=== PATIENT | male | born 2005 | race Asian ===

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

== ENCOUNTER 2023-12-22 17:27 | Emergency (ER) | payer OTHER ==
[~2023-12-22 17:27] MED LIST: VENL37.598 PO
[2023-12-22] MEDS ORDERED: IBUP-1022 PO (18:50)
[2023-12-22] MEDS: IBUPROFEN 600MG TAB PO ONE (19:04)
[2023-12-22 19:09] VITALS: BP 136/86; TEMP 97.2; O2SAT 100
== END 2023-12-22 19:19 | disposition home or self-care (01) ==
LOC: M ED 17:27
DX: S90.31XA Contusion of right foot, initial encounter (principal); W20.8XXA Other cause of strike by thrown, projected or falling object, initial encounter; Y92.9 Unspecified place or not applicable; Y93.89 Activity, other specified; Y99.1 Military activity; Z91.030 Bee allergy status; Z79.1 Long term (current) use of non-steroidal anti-inflammatories (NSAID)

== ENCOUNTER → 2024-05-22 | Outpatient (REF) | payer OTHER ==
[~2024-05-22] MED LIST changes: +IBUP-1022 PO
== END ==
LOC: M WUC 20:26
DX: R19.7 Diarrhea, unspecified (principal)

== ENCOUNTER 2024-08-19 15:01 | Emergency (ER) | payer OTHER ==
[~2024-08-19] VITALS: Ht 172.7 cm; Wt 113.6 kg
[2024-08-19 17:03] LABS: Trichomonas vaginalis (AMP) NOT DETECTED (NEGATIVE)
[2024-08-19 17:27] LABS: GC DNA AMPLIFICATION NEGATIVE (NEGATIVE)
[2024-08-19 17:50] LABS: HEPATITIS B SURFACE ANTIBODY POSITIVE (POSITIVE)
[2024-08-19 18:02] LABS: HEPATITIS B SURFACE ANTIGEN NEGATIVE (NEGATIVE)
[2024-08-19 18:14] LABS: HIV 1&2 SCREEN NEGATIVE (NEGATIVE)
[2024-08-19 18:22] LABS: HEPATITIS C VIRUS ABY INDEX < 0.02 INDEX (<0.8)
[2024-08-19 19:46] VITALS: BP 151/65; TEMP 96.5; O2SAT 100
== END 2024-08-19 19:52 | disposition home or self-care (01) ==
LOC: M ED 15:01
DX: Z11.3 Encounter for screening for infections with a predominantly sexual mode of transmission (principal); Z91.030 Bee allergy status; Z79.1 Long term (current) use of non-steroidal anti-inflammatories (NSAID)

== ENCOUNTER 2025-01-30 12:51 | Inpatient (IN) | payer OTHER ==
[~2025-01-30] VITALS: Ht 170.2 cm; Wt 120.0 kg
[~2025-01-30 12:51] MED LIST changes: -IBUP-1022 PO; +IBUP600T42 PO
[2025-01-30 14:15] LABS: PLATELET COUNT, AUTOMATED 270 10^3/uL (150-450)
[2025-01-30 14:41] LABS: ETHYL ALCOHOL (ETHANOL) 0.003 % (0.000-0.010)
[2025-01-30 14:43] LABS: ALT/SGPT 78 U/L (7.0-40); AST/SGOT 46 U/L (<34); CALCIUM LEVEL 9.4 MG/DL (8.5-10.1); CARBON DIOXIDE LEVEL 24 MMOL/L (20-31); CHLORIDE LEVEL 103 MMOL/L (98-107); CREATININE FOR GFR 0.81 MG/DL (0.70-1.30); GLOMERULAR FILTRATION RATE > 90.0 (>60); POTASSIUM SERUM 4.3 MMOL/L (3.5-5.1); SALICYLATE LEVEL < 3.0 MG/DL (<30); SODIUM LEVEL 140 MMOL/L (136-145)
[2025-01-30 14:51] LABS: AMPHETAMINES LEVEL URINE NEGATIVE (NEGATIVE); BARBITURATES URINE NEGATIVE (NEGATIVE); BENZODIAZEPINES URINE NEGATIVE (NEGATIVE); CANNABINOIDS URINE NEGATIVE (NEGATIVE); COCAINE METABOLITE URINE NEGATIVE (NEGATIVE); METHADONE URINE NEGATIVE (NEGATIVE); OPIATES URINE NEGATIVE (NEGATIVE); PHENCYCLIDINE URINE NEGATIVE (NEGATIVE)
[2025-01-30] MEDS: IBUPROFEN 600 MG TAB PO ONE (15:05)
[2025-01-30] MEDS ORDERED: IBUP-1729 PO (16:51)
[2025-01-30] MEDS ORDERED: HOME MED LIST COMPLETE! XX SCH (16:55)
[2025-01-30] MEDS ORDERED: MOM 30 ML SUSPENSION UDC PO PRN (19:25)
[2025-01-30] MEDS ORDERED: MAALOX 30 ML SUSP *UDC PO PRN (19:25)
[2025-01-30] MEDS ORDERED: traZODone 50 MG TAB PO PRN (19:25)
[2025-01-30 21:30] VITALS: BP 146/88; TEMP 97.6; O2SAT 100
[2025-01-31 06:31] VITALS: BP 133/62; TEMP 97.2; O2SAT 99
[2025-01-31] MEDS: IBUPROFEN 400 MG TAB PO PRN (13:09)
[2025-01-31 15:57] VITALS: BP 139/83; TEMP 97.7; O2SAT 99
[2025-01-31] MEDS: FLUZONE VACCINE TRI PF(25-26) 0.5ML SYRINGE IM.IMMUN ONE (17:05)
[2025-02-01 06:14] VITALS: BP 150/80; TEMP 97.8; O2SAT 100
[2025-02-01] MEDS ORDERED: OLANZapine ORAL DISINTEGRATING TAB 5MG PO PRN (10:40)
[2025-02-01 14:24] VITALS: BP 127/84; TEMP 97.3; O2SAT 99
[2025-02-01] MEDS: ACETAMINOPHEN 325 MG TAB PO PRN (20:50)
[2025-02-02 06:19] VITALS: BP 133/91; TEMP 97.3; O2SAT 98
[2025-02-02 14:51] VITALS: BP 137/86; TEMP 97; O2SAT 98
[2025-02-03 06:39] VITALS: BP 158/79; TEMP 97.1; O2SAT 97
[2025-02-03 14:24] VITALS: BP 138/86; TEMP 97.8; O2SAT 99
[2025-02-03] MEDS: OLANZapine 5 MG TAB PO SCH (20:39)
[2025-02-04 06:34] VITALS: BP 132/59; TEMP 97.6; O2SAT 100
[2025-02-04] MEDS: FLUoxetine 20 MG CAP PO SCH (08:44)
[2025-02-04] MEDS ORDERED: OLAN1TAB16 PO (12:12)
[2025-02-04] MEDS ORDERED: FLUO-365 PO (12:12)
== END 2025-02-04 14:41 | disposition home or self-care (01) | DRG 885 ==
LOC: EDBD 12:51 → M ED 12:51 → M ED INP 19:27 → M PSY 20:37
PROVIDERS: ADMIT Psychiatry & Neurology Neurology; ATTEND Psychiatry & Neurology Neurology
DX: F39 Unspecified mood [affective] disorder (principal); R45.851 Suicidal ideations; R45.850 Homicidal ideations; Z62.810 Personal history of physical and sexual abuse in childhood; Z65.3 Problems related to other legal circumstances; Z91.030 Bee allergy status; F64.0 Transsexualism; F17.200 Nicotine dependence, unspecified, uncomplicated; E66.01 Morbid (severe) obesity due to excess calories; M54.59 Other low back pain; G89.29 Other chronic pain; F90.9 Attention-deficit hyperactivity disorder, unspecified type; F60.3 Borderline personality disorder